=== PATIENT | male | born 1960 | race African-American/Black ===

== ENCOUNTER 2019-05-20 | Emergency (ER) | payer OTHER ==
[~2019-05-20] MED LIST: FLEXERIL OR; LORTAB 10 OR; PANTOPRAZOLE SO40 MG PO
[2019-05-20] MEDS ORDERED: ATORVASTATIN CA20 MG PO (10:29)
[2019-05-20] MEDS ORDERED: METFORMIN500 M2 PO (10:30)
[2019-05-20] MEDS ORDERED: FLEXERIL PO (11:22)
[2019-05-20] MEDS ORDERED: LORTAB 1010 MG PO (11:22)
[2019-05-20] MEDS ORDERED: MEDDOSEPAK PO (11:26)
== END 2019-05-20 11:35 | disposition home or self-care (01) | DRG 552 ==
DX: M47.816 Spondylosis without myelopathy or radiculopathy, lumbar region (principal); E11.9 Type 2 diabetes mellitus without complications; E55.9 Vitamin D deficiency, unspecified

== ENCOUNTER 2019-06-07 | Emergency (ER) | payer OTHER ==
[~2019-06-07] MED LIST changes: +ATORVASTATIN CA20 MG PO; +FLEXERIL PO; +LORTAB 1010 MG PO; +MEDDOSEPAK PO; +METFORMIN500 M2 PO
[2019-06-07] MEDS ORDERED: PERCOCET 10/31 COMBO PO (04:27)
[2019-06-07] MEDS ORDERED: FLEXERIL PO (04:27)
== END 2019-06-07 04:38 | disposition home or self-care (01) | DRG 552 ==
DX: M47.816 Spondylosis without myelopathy or radiculopathy, lumbar region (principal)

== ENCOUNTER 2020-10-23 00:13 | Emergency (ER) | payer OTHER ==
[~2020-10-23] VITALS: Ht 180.3 cm; Wt 111.0 kg
[~2020-10-23 00:13] MED LIST changes: +PERCOCET 10/31 COMBO PO
[2020-10-23] MEDS ORDERED: MOTRIN800 MG PO ×2 (01:04→01:08)
[2020-10-23] MEDS ORDERED: ULTRAM50 MG PO (01:04)
[2020-10-23 01:28] VITALS: BP 147/70
== END 2020-10-23 01:23 | disposition home or self-care (01) | DRG 563 ==
LOC: ED 00:13
DX: S43.401A Unspecified sprain of right shoulder joint, initial encounter (principal); E78.5 Hyperlipidemia, unspecified; X50.0XXA Overexertion from strenuous movement or load, initial encounter; Y93.K1 Activity, walking an animal; Y92.410 Unspecified street and highway as the place of occurrence of the external cause